=== PATIENT | male | born 2000 | race African-American/Black ===

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

== ENCOUNTER 2022-12-15 20:15 | Emergency (ER) | payer MEDICAID ==
[~2022-12-15] VITALS: Ht 182.9 cm; Wt 91.0 kg
[2022-12-15 23:20] VITALS: BP 136/84
[2022-12-15] MEDS ORDERED: ONDANSETRON HCL 4MG/2ML INJ IM NR (23:20)
[2022-12-15] MEDS ORDERED: KETOROLAC 60MG/2ML VIAL IM NR (23:20)
[2022-12-16] MEDS ORDERED: SODIUM CHLORIDE 0.9% 1,000 ML IV ONE
[2022-12-16] MEDS ORDERED: IBUP-2029 PO (01:54)
[2022-12-16] MEDS ORDERED: ONDA4TAB50 PO (01:54)
== END 2022-12-16 02:40 | disposition home or self-care (01) ==
LOC: ER 20:15
DX: B34.9 Viral infection, unspecified (principal); Z20.822 Contact with and (suspected) exposure to COVID-19
CPT/HCPCS: 87070; 87426; 87430; 96360; 96372; 99284; C9803; J1885; J2405; J7030

== ENCOUNTER 2023-10-23 01:47 | Emergency (ER) | payer BC, MEDICAID ==
[~2023-10-23] VITALS: Ht 182.9 cm; Wt 105.0 kg
[~2023-10-23 01:47] MED LIST: AMOX-494 MT; IBUP-2029 PO; ONDA4TAB50 PO
[2023-10-23 02:25] VITALS: TEMP 98; O2SAT 98
[2023-10-23] MEDS ORDERED: NAPR220C61 MT (06:21)
[2023-10-23 07:08] VITALS: BP 148/86; PULSE 70; RESP 18
[2023-10-23] MEDS: IBUPROFEN 600MG TABLET PO ONE (07:08)
== END 2023-10-23 07:09 | disposition home or self-care (01) ==
LOC: ER 01:47
DX: S69.91XA Unspecified injury of right wrist, hand and finger(s), initial encounter (principal); V98.8XXA Other specified transport accidents, initial encounter; Y93.89 Activity, other specified; Y92.89 Other specified places as the place of occurrence of the external cause; Y99.8 Other external cause status
CPT/HCPCS: 29125; 73090; 73110; 73130; 99284

== ENCOUNTER 2024-04-01 08:18 | Emergency (ER) | payer MEDICAID ==
[~2024-04-01] VITALS: Ht 177.8 cm; Wt 98.0 kg
[~2024-04-01 08:18] MED LIST changes: +NAPR220C61 MT
[2024-04-01 08:26] VITALS: O2SAT 99
[2024-04-01] MEDS ORDERED: IBUP-2029 MT (08:57)
[2024-04-01 09:37] VITALS: TEMP 98.4
[2024-04-01 09:46] VITALS: BP 128/73; PULSE 89; RESP 20
[2024-04-01] MEDS: IBUPROFEN 600MG TABLET PO ONE (09:46)
== END 2024-04-01 09:47 | disposition home or self-care (01) ==
LOC: ER 08:18
DX: S93.402A Sprain of unspecified ligament of left ankle, initial encounter (principal); W18.30XA Fall on same level, unspecified, initial encounter; Y93.89 Activity, other specified; Y92.89 Other specified places as the place of occurrence of the external cause; Y99.8 Other external cause status
CPT/HCPCS: 73610; 73630; 99284